=== PATIENT | male | born 1985 | race Hispanic/Latino ===

== ENCOUNTER 2018-01-09 00:03 | Emergency (ER) | payer BC ==
[~2018-01-09] VITALS: Ht 177.8 cm; Wt 192.3 kg
[~2018-01-09 00:03] MED LIST: AMLODIPINE BESY10 MG PO; BYSTOLIC10 MG PO; CEPHALEXIN500 MG PO; HYDROCHLOROTHIA25 MG PO; HYZAAR 100-251 EACH PO; LOSARTAN POTAS100 MG PO; METFORMIN HCL500 MG PO; MONTELUKAST SOD10 MG PO; NORVASC5 MG PO; OMEPRAZOLE40 MG PO; RHINOCORT AQUA; SULFAMETHOXAZO1 EAC1 PO; VENTOLIN HFA18 GM
[2018-01-09] MEDS ORDERED: SODIUM CHLORIDE 0.9% 1000ML 1,000 ML IV STA (00:23)
[2018-01-09] MEDS ORDERED: METOPROLOL TARTRATE 25 MG TAB ONE (00:37)
[2018-01-09] MEDS ORDERED: METOPROLOL TARTRATE 25 MG TAB PO ONE (00:45)
[2018-01-09 00:46] LABS: BASOPHILS % 0.3 % (0.0-1.0); EOSINOPHILS # (AUTO) 0.3 (0.0-0.4); EOSINOPHILS % 2.2 % (0.0-6.0); HEMATOCRIT 43.3 % (38.2-49.6); HEMOGLOBIN 14.8 g/dL (14.0-18.0); LYMPHOCYTES # (AUTO) 2.3 (1.0-3.2); LYMPHOCYTES % 20.5 % (18.0-39.1); MEAN CORPUSCULAR HEMOGLOBIN 28.8 pg (28-32); MEAN CORPUSCULAR HGB CONC 34.2 g/dL (31-35); MEAN CORPUSCULAR VOLUME 84.4 fL (81-99); MONOCYTES # (AUTO) 0.9 (0.2-0.8); MONOCYTES % 7.6 % (4.4-11.3); NEUTROPHILS # (AUTO) 7.9 (2.1-6.9); PLATELET COUNT 371 x10e3/uL (140-360); RED BLOOD COUNT 5.13 x10e6/uL (4.3-5.7); RED CELL DISTRIBUTION WIDTH 13.2 % (11.7-14.4)
[2018-01-09 00:59] LABS: ALANINE AMINOTRANSFERASE 45 IU/L (0-55); ALKALINE PHOSPHATASE 64 IU/L (40-150); BLOOD UREA NITROGEN 12 mg/dL (7-26); BUN/CREATININE RATIO 14 (6-25); CHLORIDE 101 mmol/L (98-107); CREATINE KINASE 58 IU/L (30-200); CREATININE, SERUM 0.83 mg/dL (0.72-1.25); EST GLOMERULAR FILTRATION RATE > 60 ML/MIN (60-); GLUCOSE 142 mg/dL (74-118); MAGNESIUM 1.9 MG/DL (1.3-2.1); POTASSIUM 3.5 mmol/L (3.5-5.1); SODIUM 141 mmol/L (136-145)
[2018-01-09 01:12] LABS: CARBON DIOXIDE 33 mmol/L (22-29)
[2018-01-09 01:16] LABS: ANION GAP 10.5 mmol/L (8-16); CALCIUM 11.7 mg/dL (8.4-10.2)
[2018-01-09 01:19] LABS: THYROID STIMULATING HORMONE 1.372 uIU/mL (0.350-4.940)
[2018-01-09 01:42] LABS: CLARITY,URINE CLEAR (CLEAR); COLOR,URINE YELLOW (YELLOW)
[2018-01-09 01:43] LABS: BILIRUBIN,URINE NEGATIVE (NEGATIVE); KETONES,URINE NEGATIVE (NEGATIVE); LEUKOCYTE ESTERASE ,URINE NEGATIVE (NEGATIVE); NITRITE,URINE NEGATIVE (NEGATIVE); PROTEIN,URINE DIPSTICK NEGATIVE (NEGATIVE); URINE UROBILINOGEN 0.2 mg/dL (0.2 - 1)
[2018-01-09 01:53] LABS: BACTERIA,URINE FEW /HPF; CALCIUM OXALATE CRYSTALS,UR MODERATE (FEW); EPITHELIAL CELLS,URINE RARE /LPF; RBC,URINE 0-5 /HPF (0-5); WBC,URINE (MAN) 0-5 /HPF (0-5)
[2018-01-09 01:54] LABS: MUCUS,URINE MANY (RARE)
--- NOTE | 2018-01-09 02:08 | Diagnostic Imaging Report ---
EXAMINATION: CHEST SINGLE (PORTABLE) INDICATION: Palpitations. COMPARISON: None FINDINGS: TUBES and LINES: None. LUNGS: Lungs are well inflated. Lungs are clear. There is no evidence of pneumonia or pulmonary edema. PLEURA: No pleural effusion or pneumothorax. HEART AND MEDIASTINUM: The cardiomediastinal silhouette is unremarkable. BONES AND SOFT TISSUES: No acute osseous lesion. Soft tissues are unremarkable. UPPER ABDOMEN: No free air under the diaphragm. IMPRESSION: No acute thoracic abnormality. Signed by: Dr. Bobby Coulter M.D. on 01/09/2018 2:04 AM
== END 2018-01-09 02:32 | disposition home or self-care (01) ==
LOC: ER 00:03
DX: R00.2 Palpitations (principal); I10 Essential (primary) hypertension; E11.9 Type 2 diabetes mellitus without complications; K21.9 Gastro-esophageal reflux disease without esophagitis
CPT/HCPCS: 36415; 71045; 80053; 81001; 82550; 82553; 83735; 84443; 84484; 85025; 93005; 99283; J7030

== ENCOUNTER 2021-08-23 12:23 | Emergency (ER) | payer SELFPAY ==
[~2021-08-23] VITALS: Ht 177.8 cm; Wt 192.3 kg
[2021-08-23] MEDS ORDERED: MIRALAX17 GM PO (12:45)
[2021-08-23] MEDS ORDERED: BISACODYL5 MG PO (12:45)
[2021-08-23] MEDS ORDERED: MAGNESIUM CITR296 ML PO (12:45)
== END 2021-08-23 12:55 | disposition home or self-care (01) ==
LOC: ER 12:51
DX: K59.00 Constipation, unspecified (principal); I10 Essential (primary) hypertension; E11.9 Type 2 diabetes mellitus without complications; K21.9 Gastro-esophageal reflux disease without esophagitis
CPT/HCPCS: 99283